=== PATIENT | female | born 1970 | race Caucasian/White ===

== ENCOUNTER 2020-09-03 14:42 | Outpatient (CLI) | payer OTHER | END 2020-09-03 21:46 | disposition home or self-care (01) | LOC: MUS 14:42 | DX: F17.200 Nicotine dependence, unspecified, uncomplicated (principal) | CPT/HCPCS: 71250; 76536 ==

== ENCOUNTER 2020-12-03 14:45 | Emergency (ER) | payer OTHER ==
[~2020-12-03] VITALS: Ht 177.8 cm; Wt 85.7 kg
[2020-12-03 14:57] VITALS: BP 118/99
--- NOTE | 2020-12-03 15:04 | NUR ---
PATIENT WHEELCHAIR ASSISTED TO BED 09
--- NOTE | 2020-12-03 15:07 | NUR ---
50 Y/O FEMALE C/O DIZZINESS X3.5HRS TODAY. PT STATES SHE WAS AT [facility] X[facility] DAYS AGO, [facility] [id number] AGO, [facility], AND [facility] FOR SAME COMPLAINTS. PT STATES SHE GETS DIZZY AFTER COUGHING. PT HAS RHONCHI LUNG SOUNDS AT BILATERAL BASES WITH DRY COUGH, NON-PRODUCTIVE, HACKING/BARKING. PT USES ALBUTEROL INHALER DAILY WITH NO RELIEF. PT DENIES N/V, DENIES FEVER/CHILLS. PMH: COPD, BLOCKAGE IN ESOPHAGUS NKA
--- NOTE | 2020-12-03 15:14 | NUR ---
DR MALIN AT BEDSIDE EXAMINING PATIENT
--- NOTE | 2020-12-03 15:26 | NUR ---
Dr. Ricardo at pt bedside for further evaluation.
--- NOTE | 2020-12-03 15:26 | NUR ---
Nevaeh jewell in ED - 12/03/[address] at [address] Ricardo at bedside for further evaluation.
--- NOTE | 2020-12-03 15:41 | NUR ---
podiatric technician at pt bedside.
--- NOTE | 2020-12-03 15:43 | NUR ---
agricultural research technologist at pt bedside.
--- NOTE | 2020-12-03 15:49 | NUR ---
Respiratory Therapist at bedside for respiratory intervention.
[2020-12-03] MEDS: IPRATROPIUM 0.02% 0.5 MG/2.5 ML NEBU INH ONE (15:50)
[2020-12-03 15:51] LABS: BASOPHILS # (AUTO) 0.1 K/uL (0.00-0.22); BASOPHILS % (AUTO) 1.2 % (0.0-2.0); EOSINOPHILS # (AUTO) 0.9 K/uL (0-0.4); EOSINOPHILS % (AUTO) 9.9 % (0.0-4.0); HEMATOCRIT 38.5 % (36-48); HEMOGLOBIN 12.8 g/dL (12.0-16.0); LYMPHOCYTES # (AUTO) 2.2 K/uL (2.5-16.5); LYMPHOCYTES % (AUTO) 24.9 % (20.5-51.1); MEAN CORPUSCULAR HEMOGLOBIN 30 pg (27-31); MEAN CORPUSCULAR HGB CONC 33 g/dL (33-37); MONOCYTES # (AUTO) 0.7 K/uL (0.8-1.0); MONOCYTES % (AUTO) 7.6 % (1.7-9.3); NEUTROPHILS % (AUTO) 56.4 % (42.2-75.2); PLATELET COUNT (AUTO) 314 K/uL (140-450); RED BLOOD CELL COUNT(AUTO) 4.28 MIL/uL (4.20-5.40); RED CELL DISTRIBUTION WIDTH 12.8 % (11.6-13.7); WHITE BLOOD COUNT (AUTO) 8.9 K/uL (4.8-10.8)
[2020-12-03] MEDS: ALBUTEROL 0.083% 2.5 MG/3 ML NEBU INH ONE ×2 (15:51→16:56)
[2020-12-03 16:13] LABS: ALBUMIN 3.6 g/dL (3.4-5.0); ANION GAP 13.1 (8-16); CARBON DIOXIDE 26.6 mmol/L (21-32); CREATININE 0.9 mg/dL (0.6-1.3); POTASSIUM 3.7 mmol/L (3.5-5.1); TOTAL BILIRUBIN 0.2 mg/dL (0.0-1.0)
[2020-12-03] MEDS: predniSONE 20 MG TAB PO ONE (16:35)
--- NOTE | 2020-12-03 16:41 | NUR ---
RT at pt bedside for breathing TX.
--- NOTE | 2020-12-03 17:01 | NUR ---
Pt vomited after breathing TX, RT and MD made aware.
[2020-12-03] MEDS ORDERED: SPIMDI INH (17:31)
[2020-12-03] MEDS ORDERED: PRED20TA5 PO (17:31)
[2020-12-03] MEDS ORDERED: ALBU1.25 NEB (17:31)
[2020-12-03] MEDS: ONDANSETRON 4 MG ODT PO ONE (17:33)
[2020-12-03 17:49] VITALS: BP 118/99
--- NOTE | 2020-12-03 17:50 | NUR ---
Patient discharged with v/s stable. Written and verbal after care instructions given and explained. Patient alert, oriented and verbalized understanding of instructions. Ambulatory with steady gait. All questions addressed prior to discharge. ID band removed. Patient advised to follow up with PMD. Rx of ALBUTEROL SULFATE NEBULIZER 1.25MG/3ML, [id number] MG TAB AND TIOTROPIUM BROMIDE 18MCG CAP given. Patient educated on indication of medication including possible reaction and side effects. Opportunity to ask questions provided and answered.
== END 2020-12-03 17:47 | disposition home or self-care (01) ==
LOC: MED 14:45
DX: J44.1 Chronic obstructive pulmonary disease with (acute) exacerbation (principal); R59.0 Localized enlarged lymph nodes; F17.210 Nicotine dependence, cigarettes, uncomplicated; Z71.6 Tobacco abuse counseling
CPT/HCPCS: 36415; 71045; 80053; 85025; 93005; 94640; 99285; J7512; J7613; J7644; Q0162